=== PATIENT | female | born 1995 | race Caucasian/White ===

== ENCOUNTER 2016-12-27 15:11 | Emergency (ER) | payer OTHER ==
[~2016-12-27] VITALS: Ht 167.6 cm; Wt 55.9 kg
[2016-12-27 15:40] VITALS: BP 136/84
--- NOTE | 2016-12-27 20:09 | NUR ---
PATIENT LEFT WITHOUT BEING SEEN BY DR. Coffey. NO FURTHER CARE PROVIDED FOR PATIENT.
== END 2016-12-27 20:09 | disposition left against medical advice (07) ==
LOC: MED 15:11
DX: R51 Headache (principal); Z53.21 Procedure and treatment not carried out due to patient leaving prior to being seen by health care provider

== ENCOUNTER 2018-08-20 12:31 | Emergency (ER) | payer OTHER ==
[~2018-08-20] VITALS: Ht 165.1 cm; Wt 61.0 kg
[2018-08-20 12:39] VITALS: BP 131/77
[2018-08-20 13:09] VITALS: BP 125/75
== END 2018-08-20 13:10 | disposition home or self-care (01) ==
LOC: MED 12:31
DX: S90.562A Insect bite (nonvenomous), left ankle, initial encounter (principal); S90.561A Insect bite (nonvenomous), right ankle, initial encounter; W57.XXXA Bitten or stung by nonvenomous insect and other nonvenomous arthropods, initial encounter; Y93.89 Activity, other specified; Y92.89 Other specified places as the place of occurrence of the external cause; Y99.8 Other external cause status
CPT/HCPCS: 99281